=== PATIENT | female | born 1975 ===

== ENCOUNTER 2024-07-27 22:40 | Inpatient (IN) | payer BC ==
[~2024-07-27] VITALS: Ht 157.5 cm; Wt 62.2 kg
[2024-07-27 23:15] LABS: BASOPHILS % (AUTO) 0.3 % (0-1); EOSINOPHILS % (AUTO) 0.1 % (0-6); HEMOGLOBIN 9.6 g/dl (12.0-16.0); LYMPHOCYTES # (AUTO) 0.9 X10'3 (1.1-4.8); LYMPHOCYTES % (AUTO) 18.6 % (21-51); MEAN PLATELET VOLUME 8.1 FL (7.4-10.4); MONOCYTES # (AUTO) 0.3 X10'3 (0-0.9); MONOCYTES % (AUTO) 6.3 % (2-12); NEUTROPHILS # (AUTO) 3.8 X10'3 (1.8-7.7); NEUTROPHILS % (AUTO) 74.7 % (42-75); PLATELET COUNT 282 X10'3 (140-440); RED BLOOD COUNT 3.67 X10'6 (4.20-5.60); RED CELL DISTRIBUTION WIDTH 21.9 % (11.5-14.5)
[2024-07-27] MEDS ORDERED: iohexol 300mg/ml 100ml inj. ONE (23:31)
[2024-07-27] MEDS: fentaNYL/PF 50MCG/1 ML 2ML syringe IV ONE (23:36)
[2024-07-27 23:39] LABS: BILIRUBIN,URINE NEGATIVE (Neg); CLARITY,URINE CLEAR (Clear); COLOR,URINE YELLOW (Yellow); GLUCOSE, URINE NEGATIVE (Neg); KETONES,URINE NEGATIVE (Neg); LEUKOCYTE ESTERASE ,URINE TRACE (Neg); NITRITES, URINE NEGATIVE (Neg); OCCULT BLOOD,URINE NEGATIVE (Neg); PROTEIN,URINE NEGATIVE (Neg)
[2024-07-27 23:41] LABS: ANISOCYTOSIS 3+; MICROCYTOSIS 1+; PLATELET ESTIMATE NORMAL
[2024-07-27 23:42] LABS: URINE HCG NEGATIVE (NEG)
[2024-07-27 23:52] LABS: ALANINE AMINOTRANSFERASE 346 U/L (12-78); ALBUMIN 2.2 G/DL (3.4-5.0); ALBUMIN/GLOBULIN RATIO 0.6 (1.1-1.5); ALKALINE PHOSPHATASE 257 IU/L (46-116); ANION GAP 14 (8-16); BLOOD UREA NITROGEN 9 MG/DL (7-18); BUN/CREATININE RATIO 9.8 (10.0-20.0); CHLORIDE 98 MMOL/L (99-107); CREATININE 0.92 MG/DL (0.40-0.90); GLUCOSE 201 MG/DL (70-104); LIPASE 37 U/L (16-77); SODIUM 134 MMOL/L (135-145); TOTAL CARBON DIOXIDE 21.7 MMOL/L (24-32); TOTAL PROTEIN 6.1 G/DL (6.4-8.2); eCRCL 59 ML/MIN; eGFR 65 ML/MIN
[2024-07-27 23:55] LABS: UA COLLECTION TYPE CLN CATCH MIDSTREAM
[2024-07-27 23:55] LABS: ASPARTATE AMINO TRANSFERASE 1105 U/L (10-37)
[2024-07-27 23:56] LABS: WBC,URINE 50-100 /HPF (0-4)
[2024-07-27 23:57] LABS: BACTERIA,URINE 4+ /HPF (Neg); RBC,URINE 0-2 /HPF (0-2); SQUAMOUS EPITHELIAL CELL,UR MANY /LPF (FEW)
[2024-07-27 23:57] LABS: POTASSIUM 2.3 MMOL/L (3.5-5.1)
[2024-07-28] VITALS (7 sets, daily range): BP systolic 119–133; BP diastolic 59–73; PULSE 96–117; RESP 16–18; TEMP 97.2–97.9; O2SAT 94–99
[2024-07-28] MEDS: LORazepam 2 mg/ml vial IV ONE (01:05)
[2024-07-28] MEDS: HYDROmorphone 1 mg/ml syringe IV ONE (01:05)
[2024-07-28] MEDS ORDERED: QUET400T PO (01:09)
[2024-07-28] MEDS ORDERED: acetaminophen 325mg tablet PO PRN (02:20)
[2024-07-28] MEDS ORDERED: methylPREDNISolone sod succ 125mg/2ml vial IV SCH (02:20)
[2024-07-28] MEDS ORDERED: morphine 2 MG/ML inj. syringe IV PRN (02:20)
[2024-07-28] MEDS ORDERED: ondansetron/PF 4mg/2ml inj IV PRN (02:20)
[2024-07-28] MEDS ORDERED: magnesium sulf-water 2g/50mL 50 ML IV PRN (02:20)
[2024-07-28] MEDS ORDERED: magnesium hydroxide 30ml (MOM) UD suspension PO PRN (02:20)
[2024-07-28] MEDS ORDERED: haloperidol lactate 5mg/ml inj IM PRN (02:35)
[2024-07-28] MEDS ORDERED: mag hydrox/Alum hydrox/simeth 30ml oral suspension PO PRN (02:35)
[2024-07-28] MEDS ORDERED: LORazepam 2 mg/ml vial IV PRN (02:35)
[2024-07-28] MEDS: thiamine 100mg/ml 2ml inj. IV SCH (03:09)
[2024-07-28] MEDS: ringers solution, lacted 1,000 ML IV ONE ×2 (03:09→04:17)
[2024-07-28] MEDS: CefTRIAXone 2gm/D5W 50ml BAG 50 ML IV SCH (04:16)
[2024-07-28] MEDS: potassium Cl 40MEQ/1/2NS 520ml 520 ML IV PRN (04:26)
[2024-07-28] MEDS: ringers solution, lacted 1,000 ML IV SCH (04:26)
[2024-07-28 06:46] LABS: BASOPHILS % (AUTO) 0.1 % (0-1); EOSINOPHILS % (AUTO) 0 % (0-6); HEMATOCRIT 29.1 % (35.0-45.0); HEMOGLOBIN 9.5 g/dl (12.0-16.0); LYMPHOCYTES # (AUTO) 0.2 X10'3 (1.1-4.8); LYMPHOCYTES % (AUTO) 2.1 % (21-51); MEAN CORPUSCULAR HEMOGLOBIN 25.6 PG (27.0-31.0); MEAN CORPUSCULAR HGB CONC 32.8 g/dL (33.0-36.5); MEAN CORPUSCULAR VOLUME 78.1 FL (78-98); MEAN PLATELET VOLUME 8.5 FL (7.4-10.4); MONOCYTES # (AUTO) 0.3 X10'3 (0-0.9); MONOCYTES % (AUTO) 3.2 % (2-12); NEUTROPHILS # (AUTO) 8.2 X10'3 (1.8-7.7); NEUTROPHILS % (AUTO) 94.6 % (42-75); PLATELET COUNT 268 X10'3 (140-440); RED BLOOD COUNT 3.73 X10'6 (4.20-5.60); RED CELL DISTRIBUTION WIDTH 22.3 % (11.5-14.5); WHITE BLOOD COUNT 8.7 X10'3 (4.5-11.0)
[2024-07-28 06:56] LABS: APTT 30 SECONDS (22-32); INR 1.6 INR; PROTHROMBIN TIME 16.1 SECONDS (9.0-12.0)
[2024-07-28 07:07] LABS: ALANINE AMINOTRANSFERASE 723 U/L (12-78); ALBUMIN 2.2 G/DL (3.4-5.0); ALBUMIN/GLOBULIN RATIO 0.5 (1.1-1.5); ALKALINE PHOSPHATASE 294 IU/L (46-116); ANION GAP 12 (8-16); BILIRUBIN,TOTAL 1.6 MG/DL (0.1-1.0); BLOOD UREA NITROGEN 7 MG/DL (7-18); BUN/CREATININE RATIO 9.6 (10.0-20.0); CALCIUM 7.4 MG/DL (8.5-10.1); CHLORIDE 100 MMOL/L (99-107); CREATININE 0.73 MG/DL (0.40-0.90); GLUCOSE 112 MG/DL (70-104); MAGNESIUM 1.4 MG/DL (1.5-2.4); PHOSPHORUS 2.3 MG/DL (2.3-4.5); POTASSIUM 3.1 MMOL/L (3.5-5.1); SODIUM 135 MMOL/L (135-145); TOTAL CARBON DIOXIDE 22.6 MMOL/L (24-32); TOTAL PROTEIN 6.3 G/DL (6.4-8.2); eCRCL 75 ML/MIN; eGFR 85 ML/MIN
[2024-07-28 07:09] LABS: ETHANOL < 10 MG/DL (<10)
[2024-07-28 07:10] LABS: URINE AMPHETAMINE SCREEN NEGATIVE (Neg); URINE BARBITUATE SCREEN NEGATIVE (Neg); URINE BENZODIAZEPINES SCREEN NEGATIVE (Neg); URINE CANNABINOID SCREEN NEGATIVE (Neg); URINE COCAINE SCREEN NEGATIVE (Neg); URINE METHADONE SCREEN NEGATIVE (Neg); URINE OPIATE SCREEN POSITIVE (Neg); URINE PHENCYCLIDINE SCREEN NEGATIVE (Neg)
[2024-07-28 07:33] LABS: FERRITIN 284 NG/ML (8-252)
[2024-07-28 07:36] LABS: ASPARTATE AMINO TRANSFERASE 3219 U/L (10-37)
[2024-07-28 07:50] LABS: % IRON SATURATION 11 % (11-46); IRON 19 UG/DL (49-151); TOTAL IRON BINDING CAPACITY 170 UG/DL (259-388)
[2024-07-28] MEDS: K and/or MAG REPLACEMENT MC SCH (08:00)
[2024-07-28] MEDS: docusate sod 100mg capsule PO SCH (10:00)
[2024-07-28] MEDS: multivitamins, therapeutics tablet PO SCH (10:00)
[2024-07-28] MEDS: normal saline 1000ml 1,000 ML IV SCH (10:01)
[2024-07-28] MEDS: pantoprazole 40mg Tablet.DR PO SCH (10:01)
[2024-07-28] MEDS: morphine 2 MG/ML inj. syringe IV PRN (10:01)
[2024-07-28] MEDS: methylPREDNISolone sod succ/PF 40mg inj. IV SCH (10:02)
[2024-07-28] MEDS: folic acid 1mg/0.2ml inj IV SCH (10:02)
[2024-07-28] MEDS: normal saline 1000ml 1,000 ML IV ONE ×2 (13:29→15:22)
[2024-07-28] MEDS: magnesium Cl slow-release 64mg tablet PO PRN (13:46)
[2024-07-28 15:43] LABS: CREATINE KINASE 99 U/L (26-192)
[2024-07-28] MEDS: potassium Cl 20 mEq SR tablet PO PRN (20:12)
[2024-07-29] VITALS (10 sets, daily range): BP systolic 112–145; BP diastolic 47–95; PULSE 90–99; RESP 15–23; TEMP 97.1–97.7; O2SAT 95–98
[2024-07-29 02:44] LABS: BASOPHILS % (AUTO) 0.2 % (0-1); EOSINOPHILS % (AUTO) 0 % (0-6); HEMATOCRIT 30.6 % (35.0-45.0); LYMPHOCYTES # (AUTO) 0.2 X10'3 (1.1-4.8); LYMPHOCYTES % (AUTO) 1.3 % (21-51); MEAN CORPUSCULAR HEMOGLOBIN 25.5 PG (27.0-31.0); MEAN CORPUSCULAR HGB CONC 32.8 g/dL (33.0-36.5); MEAN CORPUSCULAR VOLUME 77.7 FL (78-98); MEAN PLATELET VOLUME 8.8 FL (7.4-10.4); MONOCYTES # (AUTO) 0.2 X10'3 (0-0.9); MONOCYTES % (AUTO) 1.7 % (2-12); NEUTROPHILS # (AUTO) 13.4 X10'3 (1.8-7.7); NEUTROPHILS % (AUTO) 96.8 % (42-75); PLATELET COUNT 262 X10'3 (140-440); RED BLOOD COUNT 3.93 X10'6 (4.20-5.60); RED CELL DISTRIBUTION WIDTH 22.2 % (11.5-14.5); WHITE BLOOD COUNT 13.9 X10'3 (4.5-11.0)
[2024-07-29 03:03] LABS: APTT 43 SECONDS (22-32); PROTHROMBIN TIME 41.4 SECONDS (9.0-12.0)
[2024-07-29 03:13] LABS: INR 4.4 INR
[2024-07-29 03:17] LABS: ALBUMIN 2.2 G/DL (3.4-5.0); ALBUMIN/GLOBULIN RATIO 0.6 (1.1-1.5); ALKALINE PHOSPHATASE 367 IU/L (46-116); ANION GAP 15 (8-16); BILIRUBIN,TOTAL 2.5 MG/DL (0.1-1.0); BLOOD UREA NITROGEN 5 MG/DL (7-18); BUN/CREATININE RATIO 7.7 (10.0-20.0); CALCIUM 7.5 MG/DL (8.5-10.1); CHLORIDE 98 MMOL/L (99-107); CHOL/HDL RATIO 2.9 (0.00-4.99); CHOLESTEROL 64 MG/DL (0-200); CREATININE 0.65 MG/DL (0.40-0.90); GLUCOSE 192 MG/DL (70-104); HDL CHOLESTEROL 22 MG/DL (35-60); LDL CHOLESTEROL 17 MG/DL (50-100); MAGNESIUM 1.5 MG/DL (1.5-2.4); PHOSPHORUS 1.6 MG/DL (2.3-4.5); POTASSIUM 3.9 MMOL/L (3.5-5.1); SODIUM 133 MMOL/L (135-145); TOTAL CARBON DIOXIDE 20.4 MMOL/L (24-32); TOTAL PROTEIN 6.2 G/DL (6.4-8.2); TRIGLYCERIDES 37 MG/DL (20-135); eCRCL 84 ML/MIN; eGFR > 90 ML/MIN
[2024-07-29 03:42] LABS: ALANINE AMINOTRANSFERASE 5104 U/L (12-78)
[2024-07-29 03:57] LABS: ASPARTATE AMINO TRANSFERASE > 7000 U/L (10-37)
[2024-07-29 10:06] LABS: CREATINE KINASE 131 U/L (26-192)
[2024-07-29] MEDS: phytonadione inj. 10 MG in normal saline 100ml IV soln 100 ML IV ONE (10:39)
[2024-07-29 11:22] LABS: ABG BASE EXCESS -8.6 mmol/L (-2.0-3.0); ABG HCO3 13.5 mmol/L (21.0-28.0); ABG OXYGEN SATURATION 94.6 % (94.0-98.0); ABG PCO2 (T) 19.6 mmHg (32.0-45.0); ABG PH (T) 7.457 (7.350-7.450); ABG PO2 (T) 79.4 mmHg (83.0-108.0); ALLEN'S TEST POSITIVE; FCOHb 0.8 % (0.5-1.5); FHHb 5.3 % (0.0-5.0); FMetHb 0.3 % (0.0-1.5); FO2Hb 93.6 % (94.0-98.0); MODE ROOM AIR; TOTAL HEMOGLOBIN 10.2 G/dl (12.0-16.0)
[2024-07-29] MEDS: sodium bicarbonate (8.4%) inj. 100 MEQ in dextrose 5%-water 1,000 ML IV SCH (13:44)
[2024-07-29] MEDS: PERFLUTREN PROTEIN-A MICROSPHR (Optison) 0.22 MG/ML 3ML VIAL IV ONE (14:37)
[2024-07-29 14:50] LABS: ALBUMIN 2.1 G/DL (3.4-5.0); ALBUMIN/GLOBULIN RATIO 0.5 (1.1-1.5); ALKALINE PHOSPHATASE 444 IU/L (46-116); ANION GAP 17 (8-16); BILIRUBIN,TOTAL 3.7 MG/DL (0.1-1.0); BLOOD UREA NITROGEN 7 MG/DL (7-18); CALCIUM 7.6 MG/DL (8.5-10.1); CHLORIDE 97 MMOL/L (99-107); CREATININE 0.88 MG/DL (0.40-0.90); GLUCOSE 280 MG/DL (70-104); SODIUM 131 MMOL/L (135-145); TOTAL CARBON DIOXIDE 17.2 MMOL/L (24-32); TOTAL PROTEIN 6.1 G/DL (6.4-8.2); eCRCL 62 ML/MIN; eGFR 69 ML/MIN
[2024-07-29] MEDS: methylPREDNISolone sod succ/PF 40mg inj. IV SCH (14:55)
[2024-07-29] MEDS: Ursodiol 300mg capsule PO SCH (14:57)
[2024-07-29 15:18] LABS: POTASSIUM 3.8 MMOL/L (3.5-5.1)
[2024-07-29 15:19] LABS: ALANINE AMINOTRANSFERASE 5464 U/L (12-78); ASPARTATE AMINO TRANSFERASE > 7000 U/L (10-37)
[2024-07-29 17:15] LABS: FIBRINOGEN 126 MG/DL (177-424)
[2024-07-29 22:06] LABS: PROTHROMBIN TIME 45.1 SECONDS (9.0-12.0)
[2024-07-29 22:13] LABS: INR 4.8 INR
[2024-07-29 22:25] LABS: ALBUMIN 2.1 G/DL (3.4-5.0); ALBUMIN/GLOBULIN RATIO 0.6 (1.1-1.5); ALKALINE PHOSPHATASE 424 IU/L (46-116); ANION GAP 14 (8-16); BLOOD UREA NITROGEN 3 MG/DL (7-18); BUN/CREATININE RATIO 3.3 (10.0-20.0); CALCIUM 7.7 MG/DL (8.5-10.1); CHLORIDE 101 MMOL/L (99-107); CREATININE 0.91 MG/DL (0.40-0.90); GLUCOSE 213 MG/DL (70-104); SODIUM 133 MMOL/L (135-145); TOTAL CARBON DIOXIDE 18.3 MMOL/L (24-32); TOTAL PROTEIN 5.6 G/DL (6.4-8.2); eCRCL 60 ML/MIN; eGFR 66 ML/MIN
[2024-07-29 22:48] LABS: ALANINE AMINOTRANSFERASE 4061 U/L (12-78); ASPARTATE AMINO TRANSFERASE 5871 U/L (10-37)
[2024-07-30] VITALS (7 sets, daily range): BP systolic 102–136; BP diastolic 73–77; PULSE 96–111; RESP 14–20; TEMP 97.5–98; O2SAT 94–98
[2024-07-30] MEDS: potassium Cl 20 mEq SR tablet PO PRN
[2024-07-30] MEDS: LORazepam 2 mg/ml vial IV PRN (02:10)
[2024-07-30] MEDS ORDERED: LORazepam 2 mg/ml vial IV PRN (02:55)
[2024-07-30] MEDS: haloperidol lactate 5mg/ml inj IM PRN (03:40)
[2024-07-30 06:22] LABS: BASOPHILS % (AUTO) 0.1 % (0-1); EOSINOPHILS # (AUTO) 0.1 X10'3 (0-0.9); EOSINOPHILS % (AUTO) 0.5 % (0-6); HEMATOCRIT 29.7 % (35.0-45.0); HEMOGLOBIN 9.8 g/dl (12.0-16.0); LYMPHOCYTES # (AUTO) 0.2 X10'3 (1.1-4.8); LYMPHOCYTES % (AUTO) 1.2 % (21-51); MEAN CORPUSCULAR HEMOGLOBIN 25.6 PG (27.0-31.0); MEAN CORPUSCULAR HGB CONC 32.9 g/dL (33.0-36.5); MEAN PLATELET VOLUME 9.3 FL (7.4-10.4); MONOCYTES # (AUTO) 0.3 X10'3 (0-0.9); NEUTROPHILS # (AUTO) 16.3 X10'3 (1.8-7.7); NEUTROPHILS % (AUTO) 96.2 % (42-75); PLATELET COUNT 201 X10'3 (140-440); RED BLOOD COUNT 3.81 X10'6 (4.20-5.60); RED CELL DISTRIBUTION WIDTH 22.2 % (11.5-14.5); WHITE BLOOD COUNT 16.9 X10'3 (4.5-11.0)
[2024-07-30 06:31] LABS: APTT 36 SECONDS (22-32); INR 3.5 INR; PROTHROMBIN TIME 33.6 SECONDS (9.0-12.0)
[2024-07-30 06:55] LABS: ALBUMIN 2.3 G/DL (3.4-5.0); ALKALINE PHOSPHATASE 442 IU/L (46-116); ANION GAP 15 (8-16); BILIRUBIN,TOTAL 4.6 MG/DL (0.1-1.0); BLOOD UREA NITROGEN 4 MG/DL (7-18); BUN/CREATININE RATIO 5.2 (10.0-20.0); CALCIUM 8.1 MG/DL (8.5-10.1); CHLORIDE 103 MMOL/L (99-107); CREATININE 0.77 MG/DL (0.40-0.90); GLUCOSE 124 MG/DL (70-104); MAGNESIUM 1.4 MG/DL (1.5-2.4); POTASSIUM 3.1 MMOL/L (3.5-5.1); SODIUM 137 MMOL/L (135-145); TOTAL CARBON DIOXIDE 18.7 MMOL/L (24-32); eCRCL 71 ML/MIN; eGFR 80 ML/MIN
[2024-07-30 07:10] LABS: TRANSFERRIN 144 mg/dL (192-364)
[2024-07-30] MEDS: LORazepam 1 MG tablet PO PRN (07:49)
[2024-07-30 07:50] LABS: ALANINE AMINOTRANSFERASE 3625 U/L (12-78); ALBUMIN/GLOBULIN RATIO 0.7 (1.1-1.5); ASPARTATE AMINO TRANSFERASE 5087 U/L (10-37); TOTAL PROTEIN 5.8 G/DL (6.4-8.2)
[2024-07-30] MEDS: lactulose 20gm/30ml cup PO SCH ×3 (07:50→13:29)
[2024-07-30 07:54] LABS: PHOSPHORUS 1.2 MG/DL (2.3-4.5)
[2024-07-30] MEDS ORDERED: sodium phosphate inj. 30 MMOL in dextrose 5%-water 250 ML IV ONE (09:20)
[2024-07-30] MEDS: phytonadione inj. 10 MG in normal saline 100ml IV soln 100 ML IV SCH (09:22)
[2024-07-30 09:43] LABS: ABG BASE EXCESS -4.4 mmol/L (-2.0-3.0); ABG HCO3 17.5 mmol/L (21.0-28.0); ABG OXYGEN SATURATION 94.4 % (94.0-98.0); ABG PCO2 (T) 22.1 mmHg (32.0-45.0); ABG PH (T) 7.513 (7.350-7.450); ABG PO2 (T) 71.8 mmHg (83.0-108.0); ALLEN'S TEST POSITIVE; FCOHb 0.8 % (0.5-1.5); FHHb 5.5 % (0.0-5.0); FMetHb 0.3 % (0.0-1.5); FO2Hb 93.4 % (94.0-98.0); MODE ROOM AIR; PATIENT TEMPERATURE 36.4; TOTAL HEMOGLOBIN 9.9 G/dl (12.0-16.0)
[2024-07-30] MEDS: Neutra Phos packet PO SCH (11:29)
[2024-07-30] MEDS: magnesium sulf-water 4G/100mL 100 ML IV PRN (13:53)
[2024-07-30] MEDS: rifaximin 550mg tablet PO SCH (13:54)
[2024-07-30] MEDS: magnesium sulf-water 4G/100mL 100 ML IV ONE (13:58)
[2024-07-30 14:10] LABS: PROTHROMBIN TIME 37.9 SECONDS (9.0-12.0)
[2024-07-30 14:16] LABS: ALBUMIN 2.4 G/DL (3.4-5.0); ALKALINE PHOSPHATASE 461 IU/L (46-116); ANION GAP 12 (8-16); BILIRUBIN,TOTAL 5.7 MG/DL (0.1-1.0); BLOOD UREA NITROGEN 3 MG/DL (7-18); BUN/CREATININE RATIO 4.1 (10.0-20.0); CALCIUM 7.8 MG/DL (8.5-10.1); CHLORIDE 103 MMOL/L (99-107); CREATININE 0.74 MG/DL (0.40-0.90); GLUCOSE 160 MG/DL (70-104); SODIUM 139 MMOL/L (135-145); TOTAL CARBON DIOXIDE 24.3 MMOL/L (24-32); eCRCL 74 ML/MIN; eGFR 84 ML/MIN
[2024-07-30 14:38] LABS: ACETAMINOPHEN < 2.0 UG/ML (10-30); ALANINE AMINOTRANSFERASE 3233 U/L (12-78); ALBUMIN/GLOBULIN RATIO 0.7 (1.1-1.5); ASPARTATE AMINO TRANSFERASE 3332 U/L (10-37); POTASSIUM 3.5 MMOL/L (3.5-5.1)
[2024-07-30] MEDS: mineral oil 133ml enema RC PRN (15:27)
[2024-07-30] MEDS: Lactulose Enema **for rectal use only RC ONE (16:50)
[2024-07-30] MEDS: potassium phosphate inj 30 MMOL in normal saline 500ml IV soln 500 ML IV ONE (17:20)
[2024-07-30] MEDS: methylPREDNISolone sod succ 125mg/2ml vial IV SCH (20:51)
[2024-07-30 21:14] LABS: INR 3.7 INR; PROTHROMBIN TIME 35.2 SECONDS (9.0-12.0)
[2024-07-30 21:33] LABS: ALBUMIN 1.9 G/DL (3.4-5.0); ALKALINE PHOSPHATASE 388 IU/L (46-116); ANION GAP 12 (8-16); BILIRUBIN,TOTAL 5.7 MG/DL (0.1-1.0); BLOOD UREA NITROGEN 3 MG/DL (7-18); BUN/CREATININE RATIO 2.9 (10.0-20.0); CALCIUM 7.8 MG/DL (8.5-10.1); CHLORIDE 107 MMOL/L (99-107); CREATININE 1.04 MG/DL (0.40-0.90); GLUCOSE 175 MG/DL (70-104); POTASSIUM 3.3 MMOL/L (3.5-5.1); SODIUM 141 MMOL/L (135-145); TOTAL CARBON DIOXIDE 22.2 MMOL/L (24-32); eCRCL 52 ML/MIN; eGFR 57 ML/MIN
[2024-07-30 21:40] LABS: ACETAMINOPHEN 2.4 UG/ML (10-30); ALANINE AMINOTRANSFERASE 2555 U/L (12-78); ALBUMIN/GLOBULIN RATIO 0.6 (1.1-1.5); ASPARTATE AMINO TRANSFERASE 1706 U/L (10-37); TOTAL PROTEIN 5.2 G/DL (6.4-8.2)
[2024-07-31] VITALS (8 sets, daily range): BP systolic 96–132; BP diastolic 59–75; PULSE 92–114; RESP 15–18; TEMP 96.5–98.8; O2SAT 94–97
[2024-07-31 05:12] LABS: FOLATE SERUM(FOLIC) 6.3 ng/mL (>3.0); HBSAG SCREEN Negative (Negative); HEP A AB, IGM Negative (Negative); HEP B SURF AB Non Reactive (.); HEPATITIS C VIRUS ANTIBODY Non Reactive (Non Reactive)
[2024-07-31] MEDS: aripiprazole 2MG tablet PO PRN (05:58)
[2024-07-31 08:39] LABS: INR 3.7 INR
[2024-07-31 08:40] LABS: PROTHROMBIN TIME 34.8 SECONDS (9.0-12.0)
[2024-07-31] MEDS: thiamine 100mg tablet PO SCH (08:42)
[2024-07-31] MEDS: folic acid 1mg tablet PO SCH (08:42)
[2024-07-31 09:13] LABS: HEMOGLOBIN 9.1 g/dl (12.0-16.0); MEAN CORPUSCULAR HGB CONC 32.5 g/dL (33.0-36.5); MEAN CORPUSCULAR VOLUME 78.3 FL (78-98); PLATELET COUNT 156 X10'3 (140-440)
[2024-07-31 09:15] LABS: HEMATOCRIT 27.9 % (35.0-45.0); MEAN CORPUSCULAR HEMOGLOBIN 25.4 PG (27.0-31.0); MEAN PLATELET VOLUME 9.3 FL (7.4-10.4); RED BLOOD COUNT 3.56 X10'6 (4.20-5.60); RED CELL DISTRIBUTION WIDTH 22.8 % (11.5-14.5); WHITE BLOOD COUNT 11.7 X10'3 (4.5-11.0)
[2024-07-31 09:49] LABS: ALBUMIN 1.7 G/DL (3.4-5.0); ALKALINE PHOSPHATASE 353 IU/L (46-116); ANION GAP 11 (8-16); BILIRUBIN,TOTAL 6.1 MG/DL (0.1-1.0); BLOOD UREA NITROGEN 3 MG/DL (7-18); BUN/CREATININE RATIO 4.1 (10.0-20.0); CALCIUM 6.8 MG/DL (8.5-10.1); CREATININE 0.74 MG/DL (0.40-0.90); GLUCOSE 125 MG/DL (70-104); MAGNESIUM 1.8 MG/DL (1.5-2.4); SODIUM 143 MMOL/L (135-145); TOTAL CARBON DIOXIDE 19.9 MMOL/L (24-32); eCRCL 74 ML/MIN; eGFR 84 ML/MIN
[2024-07-31 09:50] LABS: CHLORIDE 112 MMOL/L (99-107)
[2024-07-31 09:51] LABS: ALBUMIN/GLOBULIN RATIO 0.6 (1.1-1.5); ASPARTATE AMINO TRANSFERASE 819 U/L (10-37); PHOSPHORUS 2.1 MG/DL (2.3-4.5); POTASSIUM 3.8 MMOL/L (3.5-5.1); TOTAL PROTEIN 4.7 G/DL (6.4-8.2)
[2024-07-31 09:53] LABS: ALANINE AMINOTRANSFERASE 1996 U/L (12-78)
[2024-07-31 09:55] LABS: ANISOCYTOSIS 3+; MICROCYTOSIS 1+; PLATELET ESTIMATE NORMAL; TOTAL CELLS COUNTED 100
[2024-07-31 09:56] LABS: HYPOCHROMASIA 1+
[2024-07-31 09:58] LABS: LARGE PLATELETS FEW; TARGET CELLS FEW
[2024-07-31] MEDS ORDERED: sodium bicarbonate (8.4%) inj. 100 MEQ in dextrose 5%-water 1,000 ML IV SCH (10:20)
[2024-07-31] MEDS: potassium phosphate inj 30 MMOL in normal saline 500ml IV soln 500 ML IV ONE (11:38)
[2024-07-31] MEDS: lactose-reduced food (Ensure Enlive) - 237ml bottle PO SCH (13:04)
[2024-07-31 14:52] LABS: ALBUMIN 1.9 G/DL (3.4-5.0); ALKALINE PHOSPHATASE 370 IU/L (46-116); ANION GAP 7 (8-16); ASPARTATE AMINO TRANSFERASE 724 U/L (10-37); BILIRUBIN,TOTAL 6.8 MG/DL (0.1-1.0); BLOOD UREA NITROGEN 3 MG/DL (7-18); BUN/CREATININE RATIO 3.4 (10.0-20.0); CALCIUM 7.4 MG/DL (8.5-10.1); CHLORIDE 110 MMOL/L (99-107); CREATININE 0.89 MG/DL (0.40-0.90); GLUCOSE 120 MG/DL (70-104); POTASSIUM 3.6 MMOL/L (3.5-5.1); SODIUM 143 MMOL/L (135-145); TOTAL CARBON DIOXIDE 26.1 MMOL/L (24-32); eCRCL 61 ML/MIN; eGFR 68 ML/MIN
[2024-07-31 14:53] LABS: ALANINE AMINOTRANSFERASE 2020 U/L (12-78); ALBUMIN/GLOBULIN RATIO 0.6 (1.1-1.5); PHOSPHORUS 3.1 MG/DL (2.3-4.5)
[2024-07-31 22:54] LABS: ALANINE AMINOTRANSFERASE 1626 U/L (12-78); ALBUMIN 1.6 G/DL (3.4-5.0); ALBUMIN/GLOBULIN RATIO 0.6 (1.1-1.5); ALKALINE PHOSPHATASE 331 IU/L (46-116); ANION GAP 9 (8-16); ASPARTATE AMINO TRANSFERASE 497 U/L (10-37); BILIRUBIN,TOTAL 6.5 MG/DL (0.1-1.0); BLOOD UREA NITROGEN 3 MG/DL (7-18); BUN/CREATININE RATIO 3.2 (10.0-20.0); CALCIUM 7.5 MG/DL (8.5-10.1); CHLORIDE 109 MMOL/L (99-107); CREATININE 0.93 MG/DL (0.40-0.90); GLUCOSE 162 MG/DL (70-104); POTASSIUM 3.3 MMOL/L (3.5-5.1); SODIUM 143 MMOL/L (135-145); TOTAL CARBON DIOXIDE 24.6 MMOL/L (24-32); TOTAL PROTEIN 4.4 G/DL (6.4-8.2); eCRCL 59 ML/MIN; eGFR 64 ML/MIN
[2024-08-01] VITALS (8 sets, daily range): BP systolic 108–137; BP diastolic 62–80; PULSE 106–119; RESP 16–24; TEMP 97.4–99; O2SAT 95–98
[2024-08-01] MEDS ORDERED: potassium Cl 40MEQ/1/2NS 520ml 520 ML IV PRN (03:30)
[2024-08-01 03:31] LABS: INR 3.4 INR; PROTHROMBIN TIME 32.3 SECONDS (9.0-12.0)
[2024-08-01] MEDS: potassium Cl 20 mEq SR tablet PO PRN (03:58)
[2024-08-01 07:18] LABS: BILIRUBIN,URINE MODERATE (Neg); CLARITY,URINE SLIGHTLY CLOUDY (Clear); COLOR,URINE YELLOW (Yellow); GLUCOSE, URINE NEGATIVE (Neg); KETONES,URINE TRACE mg/dl (Neg); LEUKOCYTE ESTERASE ,URINE NEGATIVE (Neg); NITRITES, URINE NEGATIVE (Neg); OCCULT BLOOD,URINE NEGATIVE (Neg); PH,URINE 6.5 (4.8-8.0); PROTEIN,URINE NEGATIVE (Neg); UROBILINOGEN,URINE 0.2 E.U/dL (0.2-1.0)
[2024-08-01 07:26] LABS: UA COLLECTION TYPE CLN CATCH MIDSTREAM
[2024-08-01 07:29] LABS: BACTERIA,URINE 1+ /HPF (Neg); SQUAMOUS EPITHELIAL CELL,UR FEW /LPF (FEW)
[2024-08-01 07:32] LABS: RBC,URINE 0-2 /HPF (0-2); WBC,URINE 0-4 /HPF (0-4)
[2024-08-01 07:33] LABS: MUCUS STRANDS FEW /LPF (Neg)
[2024-08-01] MEDS: K and/or MAG REPLACEMENT MC SCH (08:00)
[2024-08-01 08:42] LABS: BASOPHILS % (AUTO) 0.3 % (0-1); EOSINOPHILS # (AUTO) 0.1 X10'3 (0-0.9); EOSINOPHILS % (AUTO) 0.5 % (0-6); HEMATOCRIT 29.1 % (35.0-45.0); HEMOGLOBIN 9.5 g/dl (12.0-16.0); LYMPHOCYTES # (AUTO) 1.4 X10'3 (1.1-4.8); LYMPHOCYTES % (AUTO) 8.8 % (21-51); MEAN CORPUSCULAR HEMOGLOBIN 25.5 PG (27.0-31.0); MEAN CORPUSCULAR HGB CONC 32.7 g/dL (33.0-36.5); MEAN PLATELET VOLUME 9.7 FL (7.4-10.4); MONOCYTES # (AUTO) 0.8 X10'3 (0-0.9); MONOCYTES % (AUTO) 5.1 % (2-12); NEUTROPHILS # (AUTO) 13.3 X10'3 (1.8-7.7); NEUTROPHILS % (AUTO) 85.3 % (42-75); PLATELET COUNT 181 X10'3 (140-440); RED BLOOD COUNT 3.73 X10'6 (4.20-5.60); RED CELL DISTRIBUTION WIDTH 22.7 % (11.5-14.5); WHITE BLOOD COUNT 15.6 X10'3 (4.5-11.0)
[2024-08-01 09:02] LABS: ALBUMIN 1.9 G/DL (3.4-5.0); ALKALINE PHOSPHATASE 336 IU/L (46-116); ANION GAP 8 (8-16); BILIRUBIN,TOTAL 7.7 MG/DL (0.1-1.0); BLOOD UREA NITROGEN 4 MG/DL (7-18); BUN/CREATININE RATIO 5.3 (10.0-20.0); CALCIUM 7.7 MG/DL (8.5-10.1); CHLORIDE 106 MMOL/L (99-107); CREATININE 0.76 MG/DL (0.40-0.90); GLUCOSE 118 MG/DL (70-104); SODIUM 141 MMOL/L (135-145); TOTAL CARBON DIOXIDE 27.4 MMOL/L (24-32); eCRCL 72 ML/MIN; eGFR 81 ML/MIN
[2024-08-01 09:10] LABS: ALANINE AMINOTRANSFERASE 1565 U/L (12-78); ALBUMIN/GLOBULIN RATIO 0.7 (1.1-1.5); ASPARTATE AMINO TRANSFERASE 338 U/L (10-37); PHOSPHORUS 2.7 MG/DL (2.3-4.5); POTASSIUM 3.6 MMOL/L (3.5-5.1); TOTAL PROTEIN 4.8 G/DL (6.4-8.2)
[2024-08-01 09:16] LABS: ACETAMINOPHEN < 2.0 UG/ML (10-30)
[2024-08-01] MEDS: lactulose 20gm/30ml cup PO SCH (12:42)
[2024-08-01] MEDS: mag hydrox/Alum hydrox/simeth 30ml oral suspension PO PRN (16:53)
[2024-08-01 17:00] LABS: ALBUMIN 1.9 G/DL (3.4-5.0); ALKALINE PHOSPHATASE 341 IU/L (46-116); ANION GAP 13 (8-16); ASPARTATE AMINO TRANSFERASE 247 U/L (10-37); BILIRUBIN,TOTAL 8.4 MG/DL (0.1-1.0); BLOOD UREA NITROGEN 5 MG/DL (7-18); BUN/CREATININE RATIO 5.1 (10.0-20.0); CHLORIDE 106 MMOL/L (99-107); CREATININE 0.99 MG/DL (0.40-0.90); GLUCOSE 140 MG/DL (70-104); SODIUM 142 MMOL/L (135-145); TOTAL CARBON DIOXIDE 22.9 MMOL/L (24-32); eCRCL 55 ML/MIN; eGFR 60 ML/MIN
[2024-08-01 17:05] LABS: ALANINE AMINOTRANSFERASE 1441 U/L (12-78); ALBUMIN/GLOBULIN RATIO 0.6 (1.1-1.5); POTASSIUM 3.3 MMOL/L (3.5-5.1)
[2024-08-01 18:39] LABS: ALBUMIN 1.9 G/DL (3.4-5.0); ALKALINE PHOSPHATASE 326 IU/L (46-116); ANION GAP 10 (8-16); ASPARTATE AMINO TRANSFERASE 221 U/L (10-37); BILIRUBIN,TOTAL 8.2 MG/DL (0.1-1.0); BLOOD UREA NITROGEN 4 MG/DL (7-18); BUN/CREATININE RATIO 4.6 (10.0-20.0); CALCIUM 7.9 MG/DL (8.5-10.1); CHLORIDE 106 MMOL/L (99-107); CREATININE 0.87 MG/DL (0.40-0.90); GLUCOSE 119 MG/DL (70-104); POTASSIUM 3.1 MMOL/L (3.5-5.1); SODIUM 143 MMOL/L (135-145); TOTAL CARBON DIOXIDE 26.8 MMOL/L (24-32); eCRCL 63 ML/MIN; eGFR 69 ML/MIN
[2024-08-01 18:40] LABS: ALANINE AMINOTRANSFERASE 1373 U/L (12-78); ALBUMIN/GLOBULIN RATIO 0.7 (1.1-1.5); TOTAL PROTEIN 4.7 G/DL (6.4-8.2)
[2024-08-02] MEDS: Melatonin 3mg tablet PO ONE ×2 (01:08→23:59)
[2024-08-02 02:00] VITALS: BP 133/74; PULSE 104; RESP 20; TEMP 97.7; O2SAT 95
[2024-08-02] MEDS: potassium Cl 20 mEq SR tablet PO PRN (02:20)
[2024-08-02 07:02] LABS: BASOPHILS % (AUTO) 0.1 % (0-1); EOSINOPHILS % (AUTO) 0.1 % (0-6); HEMOGLOBIN 10.1 g/dl (12.0-16.0); LYMPHOCYTES # (AUTO) 1.5 X10'3 (1.1-4.8); LYMPHOCYTES % (AUTO) 7.4 % (21-51); MEAN CORPUSCULAR HEMOGLOBIN 25.8 PG (27.0-31.0); MEAN CORPUSCULAR HGB CONC 32.7 g/dL (33.0-36.5); MEAN CORPUSCULAR VOLUME 78.8 FL (78-98); MEAN PLATELET VOLUME 9.4 FL (7.4-10.4); MONOCYTES # (AUTO) 1.1 X10'3 (0-0.9); MONOCYTES % (AUTO) 5.5 % (2-12); NEUTROPHILS # (AUTO) 17.7 X10'3 (1.8-7.7); NEUTROPHILS % (AUTO) 86.9 % (42-75); PLATELET COUNT 160 X10'3 (140-440); RED BLOOD COUNT 3.94 X10'6 (4.20-5.60); WHITE BLOOD COUNT 20.3 X10'3 (4.5-11.0)
[2024-08-02 07:10] LABS: INR 3.2 INR; PROTHROMBIN TIME 30.4 SECONDS (9.0-12.0)
[2024-08-02 07:28] LABS: ALBUMIN 1.9 G/DL (3.4-5.0); ALKALINE PHOSPHATASE 344 IU/L (46-116); ANION GAP 9 (8-16); ASPARTATE AMINO TRANSFERASE 156 U/L (10-37); BILIRUBIN,TOTAL 9.2 MG/DL (0.1-1.0); BLOOD UREA NITROGEN 5 MG/DL (7-18); BUN/CREATININE RATIO 5.4 (10.0-20.0); CALCIUM 8.1 MG/DL (8.5-10.1); CHLORIDE 105 MMOL/L (99-107); CREATININE 0.92 MG/DL (0.40-0.90); GLUCOSE 101 MG/DL (70-104); POTASSIUM 3.5 MMOL/L (3.5-5.1); SODIUM 142 MMOL/L (135-145); TOTAL CARBON DIOXIDE 28.1 MMOL/L (24-32); eCRCL 59 ML/MIN; eGFR 65 ML/MIN
[2024-08-02 07:30] LABS: ALANINE AMINOTRANSFERASE 1204 U/L (12-78); ALBUMIN/GLOBULIN RATIO 0.6 (1.1-1.5); TOTAL PROTEIN 5.1 G/DL (6.4-8.2)
[2024-08-02 07:51] LABS: ANISOCYTOSIS 3+; MICROCYTOSIS 1+; NUCLEATED RED BLOOD CELLS 2 /100WBC (0-0); PLATELET ESTIMATE NORMAL; TOTAL CELLS COUNTED 100
[2024-08-02 07:52] LABS: HYPOCHROMASIA 1+; POLYCHROMASIA 1+; TARGET CELLS 1+
[2024-08-02 08:19] LABS: BILIRUBIN,DIRECT 7.1 MG/DL (0-0.3)
[2024-08-02 10:00] VITALS: BP 130/81; PULSE 75; RESP 16; TEMP 97.6; O2SAT 98
[2024-08-02 14:50] LABS: ALBUMIN 1.9 G/DL (3.4-5.0); ALKALINE PHOSPHATASE 334 IU/L (46-116); ANION GAP 11 (8-16); ASPARTATE AMINO TRANSFERASE 128 U/L (10-37); BLOOD UREA NITROGEN 5 MG/DL (7-18); BUN/CREATININE RATIO 5.1 (10.0-20.0); CALCIUM 8.1 MG/DL (8.5-10.1); CHLORIDE 103 MMOL/L (99-107); CREATININE 0.98 MG/DL (0.40-0.90); GLUCOSE 139 MG/DL (70-104); POTASSIUM 3.8 MMOL/L (3.5-5.1); SODIUM 140 MMOL/L (135-145); TOTAL CARBON DIOXIDE 25.8 MMOL/L (24-32); eCRCL 56 ML/MIN; eGFR 61 ML/MIN
[2024-08-02 14:52] LABS: ALANINE AMINOTRANSFERASE 1108 U/L (12-78); ALBUMIN/GLOBULIN RATIO 0.6 (1.1-1.5)
[2024-08-02 15:00] VITALS: BP 112/58; PULSE 106; RESP 17; TEMP 98; O2SAT 97
[2024-08-02 18:00] VITALS: BP 149/74; PULSE 110; RESP 20; TEMP 97.8; O2SAT 96
[2024-08-02] MEDS: lactose-reduced food (Ensure High Protein) 237ml bottle PO SCH (18:00)
[2024-08-02 19:17] LABS: MAGNESIUM 1.9 MG/DL (1.5-2.4)
[2024-08-02] MEDS: lactulose 20gm/30ml cup PO SCH (20:36)
[2024-08-02 22:00] VITALS: BP 119/71; PULSE 103; RESP 14; TEMP 99.7; O2SAT 95
[2024-08-02 22:57] LABS: ALBUMIN 2.1 G/DL (3.4-5.0); ALKALINE PHOSPHATASE 340 IU/L (46-116); ANION GAP 7 (8-16); ASPARTATE AMINO TRANSFERASE 112 U/L (10-37); BILIRUBIN,TOTAL 10.9 MG/DL (0.1-1.0); BLOOD UREA NITROGEN 6 MG/DL (7-18); BUN/CREATININE RATIO 7.1 (10.0-20.0); CALCIUM 8.1 MG/DL (8.5-10.1); CHLORIDE 104 MMOL/L (99-107); CREATININE 0.84 MG/DL (0.40-0.90); GLUCOSE 97 MG/DL (70-104); POTASSIUM 3.9 MMOL/L (3.5-5.1); SODIUM 141 MMOL/L (135-145); TOTAL CARBON DIOXIDE 29.8 MMOL/L (24-32); eCRCL 65 ML/MIN; eGFR 72 ML/MIN
[2024-08-02 22:59] LABS: ALANINE AMINOTRANSFERASE 1088 U/L (12-78); ALBUMIN/GLOBULIN RATIO 0.7 (1.1-1.5); TOTAL PROTEIN 5.1 G/DL (6.4-8.2)
[2024-08-03 02:00] VITALS: BP 120/84; PULSE 101; RESP 20; TEMP 99.6; O2SAT 96
[2024-08-03 03:58] LABS: BASOPHILS % (AUTO) 0.2 % (0-1); EOSINOPHILS % (AUTO) 0 % (0-6); HEMATOCRIT 28.5 % (35.0-45.0); HEMOGLOBIN 9.5 g/dl (12.0-16.0); LYMPHOCYTES # (AUTO) 1.1 X10'3 (1.1-4.8); LYMPHOCYTES % (AUTO) 6.6 % (21-51); MEAN CORPUSCULAR HEMOGLOBIN 25.8 PG (27.0-31.0); MEAN CORPUSCULAR HGB CONC 33.1 g/dL (33.0-36.5); MEAN PLATELET VOLUME 9.4 FL (7.4-10.4); MONOCYTES # (AUTO) 0.7 X10'3 (0-0.9); MONOCYTES % (AUTO) 3.8 % (2-12); NEUTROPHILS # (AUTO) 15.2 X10'3 (1.8-7.7); NEUTROPHILS % (AUTO) 89.4 % (42-75); PLATELET COUNT 136 X10'3 (140-440); RED BLOOD COUNT 3.66 X10'6 (4.20-5.60); RED CELL DISTRIBUTION WIDTH 23.1 % (11.5-14.5)
[2024-08-03 04:14] LABS: ALANINE AMINOTRANSFERASE 878 U/L (12-78); ALBUMIN 1.9 G/DL (3.4-5.0); ALKALINE PHOSPHATASE 310 IU/L (46-116); ANION GAP 8 (8-16); ASPARTATE AMINO TRANSFERASE 96 U/L (10-37); BILIRUBIN,TOTAL 10.1 MG/DL (0.1-1.0); BLOOD UREA NITROGEN 7 MG/DL (7-18); CALCIUM 7.9 MG/DL (8.5-10.1); CHLORIDE 106 MMOL/L (99-107); CREATININE 0.78 MG/DL (0.40-0.90); GLUCOSE 95 MG/DL (70-104); POTASSIUM 3.8 MMOL/L (3.5-5.1); SODIUM 143 MMOL/L (135-145); TOTAL CARBON DIOXIDE 28.9 MMOL/L (24-32); eCRCL 70 ML/MIN; eGFR 79 ML/MIN
[2024-08-03 04:22] LABS: ALBUMIN/GLOBULIN RATIO 0.7 (1.1-1.5); TOTAL PROTEIN 4.7 G/DL (6.4-8.2)
[2024-08-03 04:31] LABS: HYPERSEGMENTED NEUTROPHILS FEW; TOTAL CELLS COUNTED 100
[2024-08-03 07:00] VITALS: BP 121/88; PULSE 105; RESP 18; TEMP 97.6; O2SAT 96
[2024-08-03 07:42] LABS: MAGNESIUM 1.9 MG/DL (1.5-2.4)
[2024-08-03 09:16] LABS: ALANINE AMINOTRANSFERASE 904 U/L (12-78); ALBUMIN 1.9 G/DL (3.4-5.0); ALKALINE PHOSPHATASE 333 IU/L (46-116); ANION GAP 10 (8-16); BLOOD UREA NITROGEN 8 MG/DL (7-18); BUN/CREATININE RATIO 10.1 (10.0-20.0); CALCIUM 8.1 MG/DL (8.5-10.1); CHLORIDE 106 MMOL/L (99-107); CREATININE 0.79 MG/DL (0.40-0.90); GLUCOSE 84 MG/DL (70-104); SODIUM 142 MMOL/L (135-145); TOTAL CARBON DIOXIDE 25.8 MMOL/L (24-32); eCRCL 69 ML/MIN; eGFR 78 ML/MIN
[2024-08-03 09:21] LABS: ALBUMIN/GLOBULIN RATIO 0.6 (1.1-1.5); ASPARTATE AMINO TRANSFERASE 114 U/L (10-37); POTASSIUM 4.5 MMOL/L (3.5-5.1); TOTAL PROTEIN 5.1 G/DL (6.4-8.2)
[2024-08-03 10:55] LABS: INR 2.7 INR; PROTHROMBIN TIME 26.2 SECONDS (9.0-12.0)
[2024-08-03 11:00] VITALS: BP 128/85; PULSE 110; RESP 19; TEMP 97.6; O2SAT 98
[2024-08-03 11:11] LABS: ALPHA-1-GLOBULIN,UR 4.1 % (.); ALPHA-2-GLOBULIN,UR 11.6 % (.); BETA GLOBULIN, UR 45.5 % (.); GAMMA GLOBULIN,UR 23.8 % (.); PROTEIN,TOTAL,URINE 11.3 mg/dL (Not Estab.)
[2024-08-03] MEDS: lactulose 20gm/30ml cup PO SCH ×2 (12:00→13:00)
[2024-08-03] MEDS ORDERED: lactulose 20gm/30ml cup PO SCH (12:30)
[2024-08-03] MEDS ORDERED: phytonadione inj. 10 MG in normal saline 100ml IV soln 100 ML IV ONE (13:40)
[2024-08-03] MEDS: phytonadione 10 MG/1 ML amp PO ONE (15:45)
[2024-08-03 16:06] VITALS: BP 106/63; PULSE 109; RESP 21; TEMP 97.4; O2SAT 96
[2024-08-03 18:00] VITALS: BP 124/90; PULSE 104; RESP 21; TEMP 98; O2SAT 94
[2024-08-03 20:05] LABS: ALANINE AMINOTRANSFERASE 807 U/L (12-78); ALKALINE PHOSPHATASE 323 IU/L (46-116); ANION GAP 10 (8-16); ASPARTATE AMINO TRANSFERASE 79 U/L (10-37); BILIRUBIN,TOTAL 11.9 MG/DL (0.1-1.0); BLOOD UREA NITROGEN 9 MG/DL (7-18); BUN/CREATININE RATIO 7.8 (10.0-20.0); CALCIUM 8.1 MG/DL (8.5-10.1); CHLORIDE 106 MMOL/L (99-107); CREATININE 1.15 MG/DL (0.40-0.90); GLUCOSE 145 MG/DL (70-104); POTASSIUM 3.7 MMOL/L (3.5-5.1); SODIUM 142 MMOL/L (135-145); TOTAL CARBON DIOXIDE 26.3 MMOL/L (24-32); eCRCL 47 ML/MIN; eGFR 50 ML/MIN
[2024-08-03 20:14] LABS: ALBUMIN/GLOBULIN RATIO 0.7 (1.1-1.5)
[2024-08-03 22:00] VITALS: BP 122/91; PULSE 95; RESP 24; TEMP 98.2; O2SAT 92
[2024-08-04 02:00] VITALS: BP 120/89; PULSE 101; RESP 20; TEMP 98.6; O2SAT 96
[2024-08-04 03:25] LABS: BASOPHILS % (AUTO) 0.1 % (0-1); EOSINOPHILS % (AUTO) 0.1 % (0-6); HEMOGLOBIN 9.5 g/dl (12.0-16.0); LYMPHOCYTES # (AUTO) 1.1 X10'3 (1.1-4.8); MEAN CORPUSCULAR HEMOGLOBIN 25.9 PG (27.0-31.0); MEAN CORPUSCULAR HGB CONC 32.7 g/dL (33.0-36.5); MEAN CORPUSCULAR VOLUME 79.3 FL (78-98); MEAN PLATELET VOLUME 9.6 FL (7.4-10.4); MONOCYTES % (AUTO) 4.7 % (2-12); NEUTROPHILS # (AUTO) 19.7 X10'3 (1.8-7.7); NEUTROPHILS % (AUTO) 90.1 % (42-75); PLATELET COUNT 137 X10'3 (140-440); RED BLOOD COUNT 3.65 X10'6 (4.20-5.60); WHITE BLOOD COUNT 21.8 X10'3 (4.5-11.0)
[2024-08-04 03:35] LABS: ALANINE AMINOTRANSFERASE 703 U/L (12-78); ALBUMIN 1.8 G/DL (3.4-5.0); ALKALINE PHOSPHATASE 294 IU/L (46-116); ANION GAP 8 (8-16); ASPARTATE AMINO TRANSFERASE 74 U/L (10-37); BILIRUBIN,TOTAL 11.4 MG/DL (0.1-1.0); BLOOD UREA NITROGEN 11 MG/DL (7-18); BUN/CREATININE RATIO 11.5 (10.0-20.0); CALCIUM 7.9 MG/DL (8.5-10.1); CHLORIDE 107 MMOL/L (99-107); CREATININE 0.96 MG/DL (0.40-0.90); GLUCOSE 103 MG/DL (70-104); POTASSIUM 3.7 MMOL/L (3.5-5.1); SODIUM 143 MMOL/L (135-145); TOTAL CARBON DIOXIDE 28.3 MMOL/L (24-32); eCRCL 57 ML/MIN; eGFR 62 ML/MIN
[2024-08-04 03:36] LABS: ALBUMIN/GLOBULIN RATIO 0.6 (1.1-1.5); TOTAL PROTEIN 4.7 G/DL (6.4-8.2)
[2024-08-04 03:49] LABS: NUCLEATED RED BLOOD CELLS 1 /100WBC (0-0); PLATELET ESTIMATE DECREASED; TOTAL CELLS COUNTED 100
[2024-08-04 03:51] LABS: ANISOCYTOSIS 3+; MICROCYTOSIS 1+; TARGET CELLS 3+
[2024-08-04 06:00] VITALS: BP 138/88; PULSE 103; RESP 19; TEMP 97.8; O2SAT 94
[2024-08-04 08:00] VITALS: RESP 13; O2SAT 97
[2024-08-04 11:00] VITALS: BP 121/60; PULSE 101; RESP 13; TEMP 97.7; O2SAT 97
[2024-08-04] MEDS ORDERED: NYSTATIN 30 GM POWDER TP SCH (13:00)
[2024-08-04] MEDS: lactulose 20gm/30ml cup PO SCH (14:00)
[2024-08-04 15:00] VITALS: BP 118/80; PULSE 104; RESP 14; TEMP 98.2; O2SAT 98
[2024-08-04] MEDS: phytonadione inj. 10 MG in normal saline 100ml IV soln 100 ML IV ONE (16:27)
[2024-08-04] MEDS: nystatin 15 GM powder TP SCH (19:36)
[2024-08-04 22:00] VITALS: BP 130/86; PULSE 87; RESP 18; TEMP 97.5; O2SAT 93
[2024-08-05] VITALS (17 sets, daily range): BP systolic 116–169; BP diastolic 65–111; PULSE 88–132; RESP 16–22; TEMP 97.2–98.6; O2SAT 97–100
[2024-08-05 06:34] LABS: BASOPHILS # (AUTO) 0.1 X10'3 (0-0.2); BASOPHILS % (AUTO) 0.3 % (0-1); EOSINOPHILS % (AUTO) 0.1 % (0-6); HEMATOCRIT 31.6 % (35.0-45.0); HEMOGLOBIN 10.2 g/dl (12.0-16.0); LYMPHOCYTES # (AUTO) 1.4 X10'3 (1.1-4.8); LYMPHOCYTES % (AUTO) 6.8 % (21-51); MEAN CORPUSCULAR HEMOGLOBIN 25.8 PG (27.0-31.0); MEAN CORPUSCULAR HGB CONC 32.2 g/dL (33.0-36.5); MEAN CORPUSCULAR VOLUME 80.1 FL (78-98); MEAN PLATELET VOLUME 10.5 FL (7.4-10.4); MONOCYTES # (AUTO) 1.3 X10'3 (0-0.9); MONOCYTES % (AUTO) 6.3 % (2-12); NEUTROPHILS # (AUTO) 17.9 X10'3 (1.8-7.7); NEUTROPHILS % (AUTO) 86.5 % (42-75); PLATELET COUNT 128 X10'3 (140-440); RED BLOOD COUNT 3.95 X10'6 (4.20-5.60); RED CELL DISTRIBUTION WIDTH 24.3 % (11.5-14.5); WHITE BLOOD COUNT 20.7 X10'3 (4.5-11.0)
[2024-08-05 06:55] LABS: ALANINE AMINOTRANSFERASE 599 U/L (12-78); ALKALINE PHOSPHATASE 316 IU/L (46-116); ANION GAP 9 (8-16); ASPARTATE AMINO TRANSFERASE 74 U/L (10-37); BILIRUBIN,TOTAL 13.9 MG/DL (0.1-1.0); BLOOD UREA NITROGEN 15 MG/DL (7-18); BUN/CREATININE RATIO 14.6 (10.0-20.0); CALCIUM 7.9 MG/DL (8.5-10.1); CHLORIDE 108 MMOL/L (99-107); CREATININE 1.03 MG/DL (0.40-0.90); GLUCOSE 89 MG/DL (70-104); SODIUM 145 MMOL/L (135-145); TOTAL CARBON DIOXIDE 28.1 MMOL/L (24-32); eCRCL 53 ML/MIN; eGFR 57 ML/MIN
[2024-08-05 06:58] LABS: ALBUMIN/GLOBULIN RATIO 0.6 (1.1-1.5); POTASSIUM 3.5 MMOL/L (3.5-5.1); TOTAL PROTEIN 5.1 G/DL (6.4-8.2)
[2024-08-05] MEDS ORDERED: sod chloride 0.9% 10ml flush syringe IV ONE (08:00)
[2024-08-05] MEDS: methylPREDNISolone sod succ 125mg/2ml vial IV SCH (09:00)
[2024-08-05] MEDS: lactulose 20gm/30ml cup PO SCH ×2 (09:00→12:58)
[2024-08-05] MEDS ORDERED: lactulose 20gm/30ml cup PO SCH ×2 (09:30)
[2024-08-05] MEDS: phytonadione inj. 10 MG in normal saline 100ml IV soln 100 ML IV ONE (12:58)
[2024-08-05 15:35] LABS: INR 2.7 INR; PROTHROMBIN TIME 26.6 SECONDS (9.0-12.0)
[2024-08-05 15:38] LABS: ALANINE AMINOTRANSFERASE 492 U/L (12-78); ALBUMIN 1.8 G/DL (3.4-5.0); ALKALINE PHOSPHATASE 275 IU/L (46-116); ANION GAP 9 (8-16); ASPARTATE AMINO TRANSFERASE 60 U/L (10-37); BLOOD UREA NITROGEN 17 MG/DL (7-18); BUN/CREATININE RATIO 16.8 (10.0-20.0); CALCIUM 7.6 MG/DL (8.5-10.1); CHLORIDE 109 MMOL/L (99-107); CREATININE 1.01 MG/DL (0.40-0.90); GLUCOSE 118 MG/DL (70-104); SODIUM 145 MMOL/L (135-145); TOTAL CARBON DIOXIDE 26.7 MMOL/L (24-32); eCRCL 54 ML/MIN; eGFR 59 ML/MIN
[2024-08-05 15:43] LABS: ALBUMIN/GLOBULIN RATIO 0.6 (1.1-1.5); POTASSIUM 3.3 MMOL/L (3.5-5.1); TOTAL PROTEIN 4.6 G/DL (6.4-8.2)
[2024-08-05] MEDS: propofol 1000mg/100ml bottle 100 ML IV ONE (17:59)
[2024-08-05] MEDS: lactose-reduced food (Ensure Enlive) - 237ml bottle PO SCH (18:00)
[2024-08-05 18:16] LABS: ABG BASE EXCESS -6.2 mmol/L (-2.0-3.0); ABG HCO3 20.3 mmol/L (21.0-28.0); ABG PCO2 (T) 43.2 mmHg (32.0-45.0); ABG PH (T) 7.287 (7.350-7.450); ALLEN'S TEST POSITIVE; FCOHb 1.4 % (0.5-1.5); FHHb 5.9 % (0.0-5.0); FMetHb 0.3 % (0.0-1.5); FO2Hb 92.4 % (94.0-98.0); MODE PRVC; PATIENT TEMPERATURE 36.4; RESPIRATORY RATE 16 b/min; TIDAL VOLUME 400 mL; TOTAL HEMOGLOBIN 10.9 G/dl (12.0-16.0)
[2024-08-05] MEDS: FENTANYL-0.9 % NACL/PF 100 ML IV SCH (18:30)
[2024-08-05] MEDS: fentaNYL/PF 50MCG/1 ML 2ML syringe ONE (18:30)
[2024-08-05] MEDS: Permethrin 1% 59ml topical rinse TP ONE ×2 (20:38→20:51)
[2024-08-05] MEDS: Permethrin Cream 60gm TP ONE (20:39)
[2024-08-06] VITALS (47 sets, daily range): BP systolic 74–118; BP diastolic 37–79; PULSE 88–133; RESP 12–16; O2SAT 96–100
[2024-08-06] MEDS: piperacillin/tazo 3.375gm/50ml 50 ML IV SCH (01:00)
[2024-08-06 02:37] LABS: BASOPHILS # (AUTO) 0.2 X10'3 (0-0.2); BASOPHILS % (AUTO) 0.6 % (0-1); EOSINOPHILS % (AUTO) 0 % (0-6); HEMATOCRIT 27.8 % (35.0-45.0); HEMOGLOBIN 8.9 g/dl (12.0-16.0); LYMPHOCYTES # (AUTO) 0.8 X10'3 (1.1-4.8); LYMPHOCYTES % (AUTO) 2.6 % (21-51); MEAN CORPUSCULAR HEMOGLOBIN 25.5 PG (27.0-31.0); MEAN CORPUSCULAR HGB CONC 31.9 g/dL (33.0-36.5); MEAN CORPUSCULAR VOLUME 79.8 FL (78-98); MEAN PLATELET VOLUME 10.3 FL (7.4-10.4); MONOCYTES # (AUTO) 1.3 X10'3 (0-0.9); MONOCYTES % (AUTO) 4.1 % (2-12); NEUTROPHILS # (AUTO) 29.3 X10'3 (1.8-7.7); NEUTROPHILS % (AUTO) 92.7 % (42-75); PLATELET COUNT 123 X10'3 (140-440); RED BLOOD COUNT 3.48 X10'6 (4.20-5.60); RED CELL DISTRIBUTION WIDTH 24.9 % (11.5-14.5)
[2024-08-06 02:41] LABS: WHITE BLOOD COUNT 31.6 X10'3 (4.5-11.0)
[2024-08-06 02:49] LABS: INR 2.7 INR
[2024-08-06 03:00] LABS: ABG HCO3 24.6 mmol/L (21.0-28.0); ABG OXYGEN SATURATION 96.8 % (94.0-98.0); ABG PCO2 (T) 30.5 mmHg (32.0-45.0); ABG PH (T) 7.524 (7.350-7.450); ABG PO2 (T) 92.3 mmHg (83.0-108.0); ALLEN'S TEST Modified; FCOHb 1.7 % (0.5-1.5); FHHb 3.1 % (0.0-5.0); FMetHb 0.3 % (0.0-1.5); FO2Hb 94.9 % (94.0-98.0); MODE prvc; PATIENT TEMPERATURE 36.8; PEEP 5 cm H2O; RESPIRATORY RATE 16 b/min; TIDAL VOLUME 400 mL; TOTAL HEMOGLOBIN 9.1 G/dl (12.0-16.0)
[2024-08-06 03:06] LABS: TOTAL CELLS COUNTED 100
[2024-08-06 03:56] LABS: ALANINE AMINOTRANSFERASE 444 U/L (12-78); ALBUMIN 1.8 G/DL (3.4-5.0); ALKALINE PHOSPHATASE 260 IU/L (46-116); ANION GAP 11 (8-16); ASPARTATE AMINO TRANSFERASE 58 U/L (10-37); BILIRUBIN,TOTAL 13.6 MG/DL (0.1-1.0); BLOOD UREA NITROGEN 21 MG/DL (7-18); BUN/CREATININE RATIO 20.4 (10.0-20.0); CALCIUM 7.6 MG/DL (8.5-10.1); CHLORIDE 108 MMOL/L (99-107); CREATININE 1.03 MG/DL (0.40-0.90); GLUCOSE 133 MG/DL (70-104); SODIUM 146 MMOL/L (135-145); TOTAL CARBON DIOXIDE 27.4 MMOL/L (24-32); eCRCL 53 ML/MIN; eGFR 57 ML/MIN
[2024-08-06 03:57] LABS: ALBUMIN/GLOBULIN RATIO 0.7 (1.1-1.5); POTASSIUM 3.3 MMOL/L (3.5-5.1); TOTAL PROTEIN 4.4 G/DL (6.4-8.2)
[2024-08-06 05:48] LABS: APTT 42 SECONDS (22-32); D-DIMER 12.25 MG/L FEU (0-0.50); INR 2.7 INR; PROTHROMBIN TIME 26.7 SECONDS (9.0-12.0)
[2024-08-06 05:54] LABS: FIBRINOGEN 78 MG/DL (177-424)
[2024-08-06 06:19] LABS: PLATELET COUNT 128 X10'3 (140-440)
[2024-08-06] MEDS ORDERED: mag hydrox/Alum hydrox/simeth 30ml oral suspension NG PRN ×2 (10:46→10:47)
[2024-08-06] MEDS ORDERED: lactose-reduced food (Ensure Enlive) - 237ml bottle NG SCH (10:46)
[2024-08-06] MEDS ORDERED: aripiprazole 2MG tablet NG PRN (10:46)
[2024-08-06] MEDS ORDERED: magnesium hydroxide 30ml (MOM) UD suspension NG PRN (10:48)
[2024-08-06] MEDS: propofol 1000mg/100ml bottle 100 ML IV SCH (11:16)
[2024-08-06 11:54] LABS: ALANINE AMINOTRANSFERASE 352 U/L (12-78); ALBUMIN 1.5 G/DL (3.4-5.0); ALKALINE PHOSPHATASE 230 IU/L (46-116); ANION GAP 9 (8-16); ASPARTATE AMINO TRANSFERASE 59 U/L (10-37); BILIRUBIN,TOTAL 12.3 MG/DL (0.1-1.0); BLOOD UREA NITROGEN 21 MG/DL (7-18); BUN/CREATININE RATIO 22.3 (10.0-20.0); CALCIUM 7.4 MG/DL (8.5-10.1); CHLORIDE 108 MMOL/L (99-107); CREATININE 0.94 MG/DL (0.40-0.90); GLUCOSE 110 MG/DL (70-104); MAGNESIUM 2.3 MG/DL (1.5-2.4); SODIUM 146 MMOL/L (135-145); TOTAL CARBON DIOXIDE 28.7 MMOL/L (24-32); eCRCL 58 ML/MIN; eGFR 64 ML/MIN
[2024-08-06 11:56] LABS: ALBUMIN/GLOBULIN RATIO 0.7 (1.1-1.5); PHOSPHORUS 3.8 MG/DL (2.3-4.5); POTASSIUM 3.3 MMOL/L (3.5-5.1); TOTAL PROTEIN 3.8 G/DL (6.4-8.2)
[2024-08-06] MEDS ORDERED: magnesium sulf-water 4G/100mL 100 ML IV PRN (13:10)
[2024-08-06] MEDS ORDERED: magnesium sulf-water 2g/50mL 50 ML IV PRN (13:10)
[2024-08-06] MEDS ORDERED: potassium Cl 40MEQ/1/2NS 520ml 520 ML IV PRN (13:10)
[2024-08-06] MEDS ORDERED: potassium Cl 20 mEq SR tablet PO PRN ×2 (13:10)
[2024-08-06] MEDS: NORepinephrine 8mg/ 250ml NS 250 ML IV SCH (13:12)
[2024-08-06] MEDS: potassium Cl 40MEQ/270ML bag 270 ML IV PRN (13:58)
[2024-08-06] MEDS: lactulose 20gm/30ml cup NG SCH (13:58)
[2024-08-06 14:51] LABS: HEMATOCRIT 23.8 % (35.0-45.0); HEMOGLOBIN 7.6 g/dl (12.0-16.0); MEAN CORPUSCULAR HEMOGLOBIN 25.4 PG (27.0-31.0); MEAN CORPUSCULAR HGB CONC 31.7 g/dL (33.0-36.5); MEAN CORPUSCULAR VOLUME 80.1 FL (78-98); MEAN PLATELET VOLUME 10.5 FL (7.4-10.4); PLATELET COUNT 114 X10'3 (140-440); RED BLOOD COUNT 2.97 X10'6 (4.20-5.60); RED CELL DISTRIBUTION WIDTH 24.2 % (11.5-14.5)
[2024-08-06 14:52] LABS: WHITE BLOOD COUNT 45.3 X10'3 (4.5-11.0)
[2024-08-06 15:20] LABS: PROTHROMBIN TIME 20.3 SECONDS (9.0-12.0)
[2024-08-06 15:38] LABS: LIPASE 133 U/L (16-77)
[2024-08-06] MEDS ORDERED: UNABLE TO OBTAIN (16:12)
[2024-08-06] MEDS: vasopressin inj. 40 UNIT in normal saline 50ml IV soln 38 ML IV SCH (19:25)
[2024-08-06] MEDS: Ursodiol 300mg capsule NG SCH (19:29)
[2024-08-06] MEDS: MEROPENEM 1GM/NS 50ML IVPB IV SCH ×2 (19:47→20:57)
[2024-08-06 19:53] LABS: ABG BASE EXCESS -2.2 mmol/L (-2.0-3.0); ABG HCO3 19.7 mmol/L (21.0-28.0); ABG OXYGEN SATURATION 94.8 % (94.0-98.0); ABG PCO2 (T) 24.3 mmHg (32.0-45.0); ABG PH (T) 7.528 (7.350-7.450); ABG PO2 (T) 82.6 mmHg (83.0-108.0); ALLEN'S TEST Modified; FCOHb 2.1 % (0.5-1.5); FHHb 5.1 % (0.0-5.0); FMetHb 0.3 % (0.0-1.5); FO2Hb 92.5 % (94.0-98.0); MODE PRVC; PATIENT TEMPERATURE 37.7; PEEP 5 cm H2O; RESPIRATORY RATE 12 b/min; TIDAL VOLUME 400 mL; TOTAL HEMOGLOBIN 8.1 G/dl (12.0-16.0)
[2024-08-06] MEDS: VANCOMYCIN/WATER FOR INJ (PEG) 1.5GM/300 ML IVPB IV ONE (20:00)
[2024-08-06 20:18] LABS: ALANINE AMINOTRANSFERASE 348 U/L (12-78); ALBUMIN 1.7 G/DL (3.4-5.0); ALKALINE PHOSPHATASE 255 IU/L (46-116); ANION GAP 12 (8-16); ASPARTATE AMINO TRANSFERASE 62 U/L (10-37); BILIRUBIN,TOTAL 13.7 MG/DL (0.1-1.0); BLOOD UREA NITROGEN 24 MG/DL (7-18); CALCIUM 7.9 MG/DL (8.5-10.1); CHLORIDE 109 MMOL/L (99-107); CREATININE 1.26 MG/DL (0.40-0.90); GLUCOSE 122 MG/DL (70-104); SODIUM 145 MMOL/L (135-145); eCRCL 43 ML/MIN; eGFR 45 ML/MIN
[2024-08-06 20:20] LABS: ALBUMIN/GLOBULIN RATIO 0.6 (1.1-1.5); POTASSIUM 4.2 MMOL/L (3.5-5.1); TOTAL PROTEIN 4.7 G/DL (6.4-8.2)
[2024-08-06] MEDS: metroNIDAZOLE 500mg tablet NG SCH (21:00)
[2024-08-06 21:26] LABS: HEMOGLOBIN 7.3 g/dl (12.0-16.0); MEAN CORPUSCULAR HEMOGLOBIN 25.6 PG (27.0-31.0); MEAN CORPUSCULAR HGB CONC 31.8 g/dL (33.0-36.5); MEAN CORPUSCULAR VOLUME 80.6 FL (78-98); MEAN PLATELET VOLUME 10.8 FL (7.4-10.4); PLATELET COUNT 124 X10'3 (140-440); RED BLOOD COUNT 2.86 X10'6 (4.20-5.60); RED CELL DISTRIBUTION WIDTH 24.1 % (11.5-14.5)
[2024-08-06 21:33] LABS: WHITE BLOOD COUNT 32.4 X10'3 (4.5-11.0)
[2024-08-06 21:37] LABS: INR 2.5 INR; PROTHROMBIN TIME 24.4 SECONDS (9.0-12.0)
[2024-08-07] VITALS (26 sets, daily range): BP systolic 78–121; BP diastolic 37–90; PULSE 116–156; RESP 14–33; O2SAT 73–100
[2024-08-07 02:47] LABS: BASOPHILS # (AUTO) 0.1 X10'3 (0-0.2); EOSINOPHILS % (AUTO) 0 % (0-6); HEMOGLOBIN 7.6 g/dl (12.0-16.0)
[2024-08-07 02:48] LABS: BASOPHILS % (AUTO) 0.3 % (0-1); HEMATOCRIT 23.4 % (35.0-45.0); LYMPHOCYTES # (AUTO) 0.9 X10'3 (1.1-4.8); LYMPHOCYTES % (AUTO) 2.8 % (21-51); MEAN CORPUSCULAR HEMOGLOBIN 26.1 PG (27.0-31.0); MEAN CORPUSCULAR HGB CONC 32.2 g/dL (33.0-36.5); MEAN CORPUSCULAR VOLUME 81.1 FL (78-98); MEAN PLATELET VOLUME 10.3 FL (7.4-10.4); MONOCYTES # (AUTO) 1.7 X10'3 (0-0.9); MONOCYTES % (AUTO) 5.1 % (2-12); NEUTROPHILS # (AUTO) 29.9 X10'3 (1.8-7.7); NEUTROPHILS % (AUTO) 91.8 % (42-75); PLATELET COUNT 127 X10'3 (140-440); RED BLOOD COUNT 2.89 X10'6 (4.20-5.60); RED CELL DISTRIBUTION WIDTH 25.5 % (11.5-14.5)
[2024-08-07 02:53] LABS: WHITE BLOOD COUNT 32.5 X10'3 (4.5-11.0)
[2024-08-07 02:58] LABS: INR 2.6 INR; PROTHROMBIN TIME 25.1 SECONDS (9.0-12.0)
[2024-08-07 03:01] LABS: ALANINE AMINOTRANSFERASE 315 U/L (12-78); ALBUMIN 1.7 G/DL (3.4-5.0); ALKALINE PHOSPHATASE 247 IU/L (46-116); ANION GAP 15 (8-16); ASPARTATE AMINO TRANSFERASE 62 U/L (10-37); BILIRUBIN,TOTAL 13.4 MG/DL (0.1-1.0); BLOOD UREA NITROGEN 25 MG/DL (7-18); CALCIUM 7.8 MG/DL (8.5-10.1); CHLORIDE 110 MMOL/L (99-107); CREATININE 1.39 MG/DL (0.40-0.90); GLUCOSE 95 MG/DL (70-104); SODIUM 146 MMOL/L (135-145); TOTAL CARBON DIOXIDE 21.3 MMOL/L (24-32); eCRCL 39 ML/MIN; eGFR 40 ML/MIN
[2024-08-07 03:03] LABS: ALBUMIN/GLOBULIN RATIO 0.6 (1.1-1.5); POTASSIUM 4.1 MMOL/L (3.5-5.1); TOTAL PROTEIN 4.5 G/DL (6.4-8.2); TRIGLYCERIDES 88 MG/DL (20-135)
[2024-08-07 03:33] LABS: NUCLEATED RED BLOOD CELLS 2 /100WBC (0-0); TOTAL CELLS COUNTED 100
[2024-08-07 03:35] LABS: ABG BASE EXCESS -3.5 mmol/L (-2.0-3.0); ABG HCO3 18.6 mmol/L (21.0-28.0); ABG OXYGEN SATURATION 96.4 % (94.0-98.0); ABG PCO2 (T) 24.2 mmHg (32.0-45.0); ABG PH (T) 7.506 (7.350-7.450); ABG PO2 (T) 91.2 mmHg (83.0-108.0); ALLEN'S TEST POSITIVE; FCOHb 2.3 % (0.5-1.5); FHHb 3.5 % (0.0-5.0); FMetHb 0.3 % (0.0-1.5); FO2Hb 93.9 % (94.0-98.0); MODE VENT - AC; PATIENT TEMPERATURE 37.7; PEEP 5 cm H2O; RESPIRATORY RATE 12 b/min; TIDAL VOLUME 400 mL
[2024-08-07 07:03] LABS: MAGNESIUM 2.3 MG/DL (1.5-2.4)
[2024-08-07 07:21] LABS: PHOSPHORUS 4.5 MG/DL (2.3-4.5)
[2024-08-07] MEDS: vancomycin/NS 1 GM ADD-VANTAGE 250 ML IV SCH (07:44)
[2024-08-07] MEDS: pantoprazole 40 MG vial IV SCH (07:50)
[2024-08-07] MEDS: MULTIVIT-MIN/FERROUS GLUCONATE 9 MG/15 ML LIQUID NG SCH (07:50)
[2024-08-07] MEDS: methylPREDNISolone sod succ/PF 40mg inj. IV SCH (07:50)
[2024-08-07] MEDS: thiamine 100mg tablet NG SCH (07:51)
[2024-08-07] MEDS: folic acid 1mg tablet NG SCH (07:54)
[2024-08-07] MEDS: mineral oil/petrolatum ophthal oint EACHEYE SCH (08:15)
[2024-08-07] MEDS: LORazepam 2 mg/ml vial IV ONE (08:47)
[2024-08-07] MEDS: midazolam 100mg in NS 100ml 100 ML IV PRN (09:23)
[2024-08-07] MEDS ORDERED: acetaminophen 325mg/10.15ml oral unit dose solution PO PRN (09:25)
[2024-08-07 09:30] LABS: HEMATOCRIT 23.3 % (35.0-45.0); HEMOGLOBIN 7.3 g/dl (12.0-16.0); MEAN CORPUSCULAR HEMOGLOBIN 26.1 PG (27.0-31.0); MEAN CORPUSCULAR HGB CONC 31.3 g/dL (33.0-36.5); MEAN CORPUSCULAR VOLUME 83.4 FL (78-98); PLATELET COUNT 128 X10'3 (140-440); RED BLOOD COUNT 2.79 X10'6 (4.20-5.60); RED CELL DISTRIBUTION WIDTH 25.4 % (11.5-14.5)
[2024-08-07 09:33] LABS: WHITE BLOOD COUNT 33.5 X10'3 (4.5-11.0)
[2024-08-07 09:41] LABS: ALANINE AMINOTRANSFERASE 299 U/L (12-78); ALBUMIN 1.7 G/DL (3.4-5.0); ALKALINE PHOSPHATASE 245 IU/L (46-116); ANION GAP 25 (8-16); ASPARTATE AMINO TRANSFERASE 68 U/L (10-37); BILIRUBIN,TOTAL 13.8 MG/DL (0.1-1.0); BLOOD UREA NITROGEN 24 MG/DL (7-18); BUN/CREATININE RATIO 15.9 (10.0-20.0); CALCIUM 7.7 MG/DL (8.5-10.1); CHLORIDE 109 MMOL/L (99-107); CREATININE 1.51 MG/DL (0.40-0.90); GLUCOSE 79 MG/DL (70-104); INR 2.6 INR; MAGNESIUM 2.3 MG/DL (1.5-2.4); SODIUM 147 MMOL/L (135-145); eCRCL 36 ML/MIN; eGFR 37 ML/MIN
[2024-08-07 09:48] LABS: POTASSIUM 4.1 MMOL/L (3.5-5.1)
[2024-08-07 09:49] LABS: ALBUMIN/GLOBULIN RATIO 0.6 (1.1-1.5); PHOSPHORUS 5.5 MG/DL (2.3-4.5); TOTAL CARBON DIOXIDE 13.5 MMOL/L (24-32); TOTAL PROTEIN 4.5 G/DL (6.4-8.2)
[2024-08-07 09:55] LABS: PROTHROMBIN TIME 25.6 SECONDS (9.0-12.0)
[2024-08-07] MEDS: Levetiracetam-NACL 500mg/100ml 100 ML IV SCH (10:26)
[2024-08-07 15:28] LABS: ABG BASE EXCESS -13.5 mmol/L (-2.0-3.0); ABG HCO3 9.6 mmol/L (21.0-28.0); ABG OXYGEN SATURATION 96.3 % (94.0-98.0); ABG PCO2 (T) 17.2 mmHg (32.0-45.0); ABG PH (T) 7.375 (7.350-7.450); ABG PO2 (T) 111.5 mmHg (83.0-108.0); ALLEN'S TEST Modified; FCOHb 2.4 % (0.5-1.5); FHHb 3.6 % (0.0-5.0); FMetHb 0.3 % (0.0-1.5); FO2Hb 93.7 % (94.0-98.0); MODE VENT - PRVC; PATIENT TEMPERATURE 39.1; PEEP 5 cm H2O; RESPIRATORY RATE 12 b/min; TIDAL VOLUME 400 mL; TOTAL HEMOGLOBIN 7.3 G/dl (12.0-16.0)
[2024-08-07] MEDS ORDERED: morphine 10mg/0.5ml (conc. morphine) oral syringe PO PRN (15:35)
[2024-08-07] MEDS ORDERED: LORazepam 2 mg/ml vial IV PRN (15:35)
[2024-08-07] MEDS ORDERED: morphine 10mg/ml inj. IV PRN (15:35)
[2024-08-07] MEDS: LORazepam 2 mg/ml vial IV PRN (16:07)
[2024-08-07] MEDS: morphine 10mg/ml inj. IV PRN (16:07)
[2024-08-07] MEDS ORDERED: sennosides/docusate sodium tablet PO SCH (20:00)
[2024-08-07] MEDS ORDERED: docusate sod 100mg capsule PO SCH (20:00)
[2024-08-08] MEDS ORDERED: VANCOMYCIN LEVEL IV ONE (07:30)
== END 2024-08-07 23:15 | DRG 917 ==
LOC: ER 22:41 → ED HOLD 07-28 02:28 → EDBEDREQ 07-28 07:08 → EDBEDREQTM 07-28 07:08 → PCU 3S 07-28 07:57 → CICU 2S 08-05 18:15
PROVIDERS: ADMIT Surgery Surgical Critical Care; ATTEND Family Medicine
PROC: BW211ZZ Computerized Tomography (CT Scan) of Abdomen and Pelvis using Low Osmolar Contrast (ICD-10-PCS; 2024-07-27)
PROC: 30233K1 Transfusion of Nonautologous Frozen Plasma into Peripheral Vein, Percutaneous Approach (ICD-10-PCS; 2024-07-29)
PROC: B54NZZA Ultrasonography of Left Upper Extremity Veins, Guidance (ICD-10-PCS; 2024-07-30)
PROC: 05HY33Z Insertion of Infusion Device into Upper Vein, Percutaneous Approach (ICD-10-PCS; 2024-07-30)
PROC: 05HD33Z Insertion of Infusion Device into Right Cephalic Vein, Percutaneous Approach (ICD-10-PCS; 2024-07-31)
PROC: 05HC33Z Insertion of Infusion Device into Left Basilic Vein, Percutaneous Approach (ICD-10-PCS; 2024-08-03)
PROC: B54NZZA Ultrasonography of Left Upper Extremity Veins, Guidance (ICD-10-PCS; 2024-08-03)
PROC: 02HV33Z Insertion of Infusion Device into Superior Vena Cava, Percutaneous Approach (ICD-10-PCS; 2024-08-05)
PROC: B548ZZA Ultrasonography of Superior Vena Cava, Guidance (ICD-10-PCS; 2024-08-05)
PROC: 0BH17EZ Insertion of Endotracheal Airway into Trachea, Via Natural or Artificial Opening (ICD-10-PCS; 2024-08-05)
PROC: 5A1945Z Respiratory Ventilation, 24-96 Consecutive Hours (ICD-10-PCS; 2024-08-05)
PROC: 30233M1 Transfusion of Nonautologous Plasma Cryoprecipitate into Peripheral Vein, Percutaneous Approach (ICD-10-PCS; 2024-08-06)
PROC: 4A00X4Z Measurement of Central Nervous Electrical Activity, External Approach (ICD-10-PCS; principal; 2024-08-07)
DX: T39.1X1A Poisoning by 4-Aminophenol derivatives, accidental (unintentional), initial encounter (principal); A41.9 Sepsis, unspecified organism; R65.21 Severe sepsis with septic shock; J69.0 Pneumonitis due to inhalation of food and vomit; K72.00 Acute and subacute hepatic failure without coma; G93.41 Metabolic encephalopathy; J96.01 Acute respiratory failure with hypoxia; D65 Disseminated intravascular coagulation [defibrination syndrome]; E87.20 Acidosis, unspecified; E87.1 Hypo-osmolality and hyponatremia; N39.0 Urinary tract infection, site not specified; K70.10 Alcoholic hepatitis without ascites; E87.6 Hypokalemia; F10.10 Alcohol abuse, uncomplicated; K70.30 Alcoholic cirrhosis of liver without ascites; K76.82 Hepatic encephalopathy; I80.8 Phlebitis and thrombophlebitis of other sites; E87.8 Other disorders of electrolyte and fluid balance, not elsewhere classified; D64.9 Anemia, unspecified; Z98.84 Bariatric surgery status; Y92.89 Other specified places as the place of occurrence of the external cause; Z90.49 Acquired absence of other specified parts of digestive tract
CPT/HCPCS: 36410; 36415; 36430; 36600; 71045; 74018; 74177; 76700; 76937; 80048; 80053; 80061; 80305; 80320; 80329; 81001; 81025; 82140; 82247; 82248; 82550; 82607; 82728; 82746; 82803; 82948; 83036; 83540; 83550; 83605; 83690; 83735; 84100; 84145; 84156; 84166; 84466; 84478; 84484; 85007; 85008; 85018; 85025; 85027; 85379; 85384; 85610; 85730; 86706; 86709; 86803; 86885; 86900; 86901; 86920; 87040; 87077; 87081; 87088; 87186; 87340; 87522; 93005; 93306; 93971; 94002; 94003; 94760; 95816; 97110; 97116; 97162; 99285; A4333; A6196; A6212; A6213; A6258; A6402; A6449; A6590; C1751; C1758; G0378; J0132; J0696; J1171; J1630; J1953; J2060; J2185; J2270; J2274; J2470; J2543; J2704; J2919; J3010; J3370; J3372; J3411; J3430; J3475; J3480; J3490; J7030; J7040; J7060; J7070; J7120; P9012; P9059; Q9967